=== PATIENT | female | born 1950 | race Two or more races ===

== ENCOUNTER 2017-06-20 21:29 | Emergency (ER) | payer MEDICAID ==
[~2017-06-20] VITALS: Ht 162.6 cm; Wt 108.0 kg
[2017-06-20 21:40] VITALS: BP 150/60
[2017-06-20] MEDS ORDERED: SENSIPAR30 MG ORAL (21:45)
[2017-06-20] MEDS ORDERED: GABAPENTIN100 MG ORAL (21:45)
[2017-06-20] MEDS ORDERED: FAMOTIDINE20 MG ORAL (21:45)
[2017-06-20] MEDS ORDERED: DDAVP NASAL (21:45)
[2017-06-20] MEDS ORDERED: DOCUSATE SODIU100 M2 ORAL (21:45)
[2017-06-20] MEDS ORDERED: ZOCOR10 MG ORAL (21:45)
[2017-06-20] MEDS ORDERED: CIPROFLOXACIN500 M2 ORAL (21:45)
[2017-06-20] MEDS ORDERED: LEVOTHYROXINE150 MCG ORAL (21:45)
[2017-06-20] MEDS ORDERED: ACETAMINOPHEN325 M1 ORAL (21:45)
[2017-06-20] MEDS ORDERED: VITAMIN D250000 UNI1 ORAL (21:45)
[2017-06-20] MEDS ORDERED: MULTI VITAMIN1 EACH ORAL (21:45)
[2017-06-20] MEDS ORDERED: OXYBUTYNIN CHLOR5 M1 ORAL (21:45)
[2017-06-20 21:54] LABS: BASOPHILS % (AUTO) 0.8 % (0.0-2.0); EOSINOPHILS % (AUTO) 2.5 % (0.0-3.0); HEMATOCRIT 40.8 % (37.0-47.0); HEMOGLOBIN 13.7 G/DL (12.0-16.0); LYMPHOCYTES % (AUTO) 22.8 % (20.0-45.0); MEAN CORPUSCULAR VOLUME 88 FL (80-99); MONOCYTES % (AUTO) 7.5 % (1.0-10.0); NEUTROPHILS % (AUTO) 66.4 % (45.0-75.0); PLATELET COUNT 270 K/UL (150-450); RED BLOOD COUNT 4.66 M/UL (4.20-5.40); RED CELL DISTRIBUTION WIDTH 13.2 % (11.6-14.8)
[2017-06-20 22:05] LABS: ANION GAP 7 mmol/L (5-15); BLOOD UREA NITROGEN 17 mg/dL (7-18); CALCIUM 9.9 MG/DL (8.5-10.1); CARBON DIOXIDE 27 MMOL/L (21-32); CHLORIDE 104 MMOL/L (98-107); CREATININE 1.1 MG/DL (0.55-1.30); POTASSIUM 3.4 MMOL/L (3.5-5.1); SODIUM 138 MMOL/L (136-145)
[2017-06-20 22:05] LABS: APPEARANCE,URINE CLEAR; BILIRUBIN, URINE NEGATIVE (NEGATIVE); COLOR,URINE PALE YELLOW; GLUCOSE, URINE (UA) NEGATIVE (NEGATIVE); KETONES,URINE NEGATIVE (NEGATIVE); LEUKOCYTE ESTERASE ,URINE NEGATIVE (NEGATIVE); NITRITE,URINE NEGATIVE (NEGATIVE); PH,URINE 7 (4.5-8.0); PROTEIN,URINE NEGATIVE (NEGATIVE); UROBILINOGEN,URINE NORMAL MG/DL (0.0-1.0)
[2017-06-20 22:18] LABS: ALANINE AMINOTRANSFERASE 53 U/L (12-78); ALBUMIN 2.8 G/DL (3.4-5.0); ALBUMIN/GLOBULIN RATIO 0.7 (1.0-2.7); ALKALINE PHOSPHATASE 175 U/L (46-116); ASPARTATE AMINO TRANSFERASE 42 U/L (15-37); BILIRUBIN,TOTAL 0.9 MG/DL (0.2-1.0); CKMB < 0.5 NG/ML (0.0-3.6); CREATINE KINASE 20 U/L (26-308)
[2017-06-20 22:38] VITALS: BP 163/78
--- NOTE | 2017-06-20 23:30 | Emergency Room Report ---
History of Present Illness General Chief Complaint: Altered Level of Consciousness Source: Family Member Present Illness HPI 66-year-old female presents ED for evaluation. Patient brought from detention. Per family patient is more altered than usual 2 days. Patient answers to her name. Patient was recently sent to detention after being admitted to a hospital. Patient was admitted to [facility] after having a dizzy episode and fall injuring her ankle. Patient denies any fevers or chills. Denies chest pain or shortness of breath. Denies any abdominal pain. No other aggravating or relieving factors. Denies any other associated symptoms Allergies: Coded Allergies: No Known Allergies (Unverified , 06/20/17) Patient History Past Medical History: DM, HTN, other - brain aneurysm Pertinent Family History: none Social History: Denies: smoking, alcohol use, drug use Now: No Immunizations: UTD Reviewed Nursing Documentation: PMH: Agreed; PSxH: Agreed Nursing Documentation-PMH Hx Cardiac Problems: Yes Hx Hypertension: Yes Hx Diabetes: Yes Hx Neurological Problems: Yes - brain aneurysm Hx Cerebrovascular Accident: Yes Review of Systems All Other Systems: negative except mentioned in HPI Physical Exam Vital Signs Date Time Temp Pulse Resp B/P (MAP) Pulse Ox O2 Delivery O2 Flow Rate FiO2 06/20/17 21:25 99.0 84 18 150/60 99 Room Air 99.0 Sp02 EP Interpretation: reviewed, normal General Appearance: no apparent distress, GCS 15, non-toxic, lethargic, obese Head: normocephalic, atraumatic Eyes: bilateral eye normal inspection, bilateral eye PERRL ENT: hearing grossly normal, normal pharynx, no angioedema, normal voice Neck: full range of motion, supple/symm/no masses Respiratory: chest non-tender, lungs clear, normal breath sounds, speaking full sentences Cardiovascular #1: regular rate, rhythm, no edema Cardiovascular #2: 2+ carotid (R), 2+ carotid (L), 2+ radial (R), 2+ radial (L) , 2+ dorsalis pedis (R), 2+ dorsalis pedis (L) Gastrointestinal: normal bowel sounds, non tender, soft, non-distended, no guarding, no rebound Rectal: deferred Genitourinary: normal inspection, no CVA tenderness Musculoskeletal: back normal, gait/station normal, normal range of motion, non- tender Neurologic: alert, motor strength/tone normal, sensory intact, speech normal, other - lethargic Psychiatric: judgement/insight normal, memory normal, other - lethargic Reflexes: 3+ bicep (R), 3+ bicep (L), 3+ tricep (R), 3+ tricep (L), 3+ knee (R) , 3+ knee (L) Skin: normal color, no rash, warm/dry, well hydrated Lymphatic: no adenopathy Medical Decision Making Diagnostic Impression: Primary Impression: Altered level of consciousness ER Course Hospital Course 66-year-old female presents ED with weakness, increased lethargy 2 days Differential diagnoses include: CA/unstable angina, arrythmia, dehydration, CVA/ TIA Clinical course Patient placed on stretcher. on equipment monitor phototypesetting. After initial history and physical I ordered labs, EKG, chest x-ray, IVFs, CT Brain labs reviewed- noted leukocytosis, hemoglobin/hematocrit ok, electrolytes okay, troponins negative, lactic ok, UA negative EKG- NSR, no acute ischemic changes interpreted by me Chest x-ray- LLL effusion, atelectasis CT brain- atrophy, encephalomalacia, s/p craniotomy, no acute process given levaquin in ED Because of insurance patient will be transferred I. I feel this is a highly complex case requiring extensive working including EKG/Rhythm strip, Xray/CT/US, Blood/urine lab work, repeat exams while in ED, and administration of strong opiates/narcotics for pain control, admission to hospital or close patient follow up. Diagnosis - ALOC transferred in serious condition Labs Test 06/20/17 21:30 06/20/17 21:50 White Blood Count 15.0 K/UL (4.8-10.8) Red Blood Count 4.66 M/UL (4.20-5.40) Hemoglobin 13.7 G/DL (12.0-16.0) Hematocrit 40.8 % (37.0-47.0) Mean Corpuscular Volume 88 FL (80-99) Mean Corpuscular Hemoglobin 29.3 PG (27.0-31.0) Mean Corpuscular Hemoglobin Concent 33.4 G/DL (32.0-36.0) Red Cell Distribution Width 13.2 % (11.6-14.8) Platelet Count 270 K/UL (150-450) Mean Platelet Volume 6.9 FL (6.5-10.1) Neutrophils (%) (Auto) 66.4 % (45.0-75.0) Lymphocytes (%) (Auto) 22.8 % (20.0-45.0) Monocytes (%) (Auto) 7.5 % (1.0-10.0) Eosinophils (%) (Auto) 2.5 % (0.0-3.0) Basophils (%) (Auto) 0.8 % (0.0-2.0) Sodium Level 138 MMOL/L (136-145) Potassium Level 3.4 MMOL/L (3.5-5.1) Chloride Level 104 MMOL/L (98-107) Carbon Dioxide Level 27 MMOL/L (21-32) Anion Gap 7 mmol/L (5-15) Blood Urea Nitrogen 17 mg/dL (7-18) Creatinine 1.1 MG/DL (0.55-1.30) Estimat Glomerular Filtration Rate 50.0 mL/min (>60) Glucose Level 133 MG/DL (74-106) Lactic Acid Level 1.10 mmol/L (0.66-2.22) Calcium Level 9.9 MG/DL (8.5-10.1) Total Bilirubin 0.9 MG/DL (0.2-1.0) Aspartate Amino Transf (AST/SGOT) 42 U/L (15-37) Alanine Aminotransferase (ALT/SGPT) 53 U/L (12-78) Alkaline Phosphatase 175 U/L (46-116) Total Creatine Kinase 20 U/L (26-308) Creatine Kinase MB < 0.5 NG/ML (0.0-3.6) Creatine Kinase MB Relative Index 2.5 Troponin I 0.001 ng/mL (0.000-0.056) Total Protein 7.1 G/DL (6.4-8.2) Albumin 2.8 G/DL (3.4-5.0) Globulin 4.3 g/dL Albumin/Globulin Ratio 0.7 (1.0-2.7) Urine Color Pale yellow Urine Appearance Clear Urine pH 7 (4.5-8.0) Urine Specific [place] 1.010 (1.005-1.035) Urine Protein Negative (NEGATIVE) Urine Glucose (UA) Negative (NEGATIVE) Urine Ketones Negative (NEGATIVE) Urine Occult Blood Negative (NEGATIVE) Urine Nitrite Negative (NEGATIVE) Urine Bilirubin Negative (NEGATIVE) Urine Urobilinogen Normal MG/DL (0.0-1.0) Urine Leukocyte Esterase Negative (NEGATIVE) EKG Diagnostic Results Rate: normal Rhythm: NSR ST Segments: no acute changes ASA given to the pt in ED: No Rhythm Strip Diag. Results EP Interpretation: yes Rhythm: NSR, no PVC's, no ectopy Chest X-Ray Diagnostic Results Chest X-Ray Diagnostic Results : Chest X-Ray Ordered: Yes # of Views/Limited/Complete: 1 View Indication: Other - altered EP Interpretation: Yes Interpretation: no consolidation, no pneumothorax, no acute cardiopulmonary disease, other CT/MRI/US Diagnostic Results CT/MRI/US Diagnostic Results : Imaging Test Ordered: CT Head Impression atrophy, encephalomalacia, s/p craniotomy. no acute process Last Vital Signs Date Time Temp Pulse Resp B/P (MAP) Pulse Ox O2 Delivery O2 Flow Rate FiO2 06/20/17 22:38 103 26 163/78 95 Room Air 06/20/17 21:40 99.0 99.0 Status: improved Disposition: XFER T-TRM HOSP Condition: Serious Referrals: NON PHYSICIAN (PCP) Ousmane Dahl MD Jun 20, 2017 23:30
[2017-06-21 01:49] VITALS: BP 147/83
[2017-06-21 04:44] VITALS: BP 154/77
[2017-06-21 05:27] VITALS: BP 154/77
--- NOTE | 2017-06-21 14:38 | Diagnostic Imaging Report ---
Indications: Altered mental status x2 days Technique: Spiral acquisitions obtained through the brain. Angled axial and coronal 5 x 5 mm slices were reconstructed. Total dose length product 401 mGycm. CTDI vol(s) 22 mGy. Dose reduction achieved using automated exposure control Comparison: None. Findings: There is evidence of prior right frontal temporal parietal craniotomy. There is some underlying encephalomalacia of the inferior frontal lobe. There is enlargement of the ventricles, which is out of proportion to degree of dilatation of the cerebral sulci. No acute intrarenal hemorrhage or edema. No mass effect or midline shift. Visualized orbits and sinuses are unremarkable Impression: Ventriculomegaly, out of proportion to degree of sulcal dilatation. Well possibly on the basis of predominant central atrophy, the possibly of hydrocephalus should be considered Evidence of prior craniotomy. Right inferior frontal encephalomalacia, likely related to such. Correlate with clinical and surgical history Negative for acute intracranial bleed or mass effect This agrees with the preliminary interpretation provided overnight by [facility] teleradiology service. The CT scanner at [facility] is accredited by the [employer] and the scans are performed using protocols designed to limit radiation exposure to as low as reasonably achievable to attain images of sufficient resolution adequate for diagnostic evaluation.
--- NOTE | 2017-06-21 15:42 | Diagnostic Imaging Report ---
Indication: Chest pain Technique: One view of the chest Comparison: none Findings: The heart is mildly enlarged. The lungs and pleural spaces are clear. The aorta is tortuous. Upper mediastinum is unremarkable Impression: Mild cardiomegaly. No acute process
== END 2017-06-21 05:28 | disposition short-term general hospital (02) ==
LOC: EDBD 21:29 → EMR 21:40
DX: R41.82 Altered mental status, unspecified (principal); I10 Essential (primary) hypertension; E11.9 Type 2 diabetes mellitus without complications; Z86.73 Personal history of transient ischemic attack (TIA), and cerebral infarction without residual deficits; R53.1 Weakness; R53.83 Other fatigue; G93.89 Other specified disorders of brain; G31.9 Degenerative disease of nervous system, unspecified
CPT/HCPCS: 36415; 70450; 71045; 80053; 81003; 82550; 82553; 83605; 84484; 85025; 87040; 87081; 93005; 96374; 96375; 99285; J1956